=== PATIENT | female | born 1990 | race Caucasian/White ===

== ENCOUNTER 2016-10-12 18:19 | Emergency (ER) | payer SELFPAY ==
[~2016-10-12 18:19] MED LIST: AUGM500T7 PO; FLUT50SP EACH NARE; MEDICAL COMPRES1 MIS
--- NOTE | 2016-10-12 19:47 | PD ---
HPI Chief Complaint Spotting in Date Seen: Oct 12, 2016 Travel History International Travel<30 Days: No Contact w/Intl Traveler<30Days: No Known Affected Area: No History of Present Illness HPI Patient a 26-year-old at 25 weeks [facility] presents complaining of some pink to light red bleeding today after intercourse. Denies ruptured membranes or significant pain baby is active and she is a reactive NST for 25 weeks, no contractions saying Para: 0 : 1 History Past Medical History Medical History: Denies Significant Hx Allergies-Medications (Allergen,Severity, Reaction): Coded Allergies: No Known Allergies (Unverified , 09/24/16) Home Meds Active Scripts Fluticasone Nasal [place] 50 Mcg/Act [id number] Mcg EACH NARE BID #1 BOTTLE Ref 0 50 mcg/spray Prov:Daniel Andrews MD R2 09/24/16 Amoxicillin-Clavulanate (Augmentin)500-125 mg [id number] Mg PO Q8H #21 TAB Ref 0 Prov:Daniel Andrews MD R2 09/24/16 Medical Compression Elastic Stockings 1 Mis Mis #2 EA .ROUTE DIRECTED Ref 0 Prov:Daniel Andrews MD R2 08/19/16 Review of Systems General / Constitutional: No: Fever, Weight Gain, Chills, Other Eyes: No: Diploplia, Blurred Vision, Visual changes, Pain, Photophobia HENT: No: Headaches, Vertigo, Lightheadedness Cardiovascular: No: Irregular Rhythm, Chest Pain or Discomfort, Palpitations, Tachycardia, Syncope, Varicosities, Edema, Cyanosis Respiratory: No: Cough, Short of Breath, Other Gastrointestinal: No: Nausea, Vomiting, Diarrhea Genitourinary: Vaginal Bleeding, No: Decreased Urinary Output, Oliguria Musculoskeletal: No: Limited ROM, Weakness, Cramping, Edema, Pain Skin: No Rash, No Itching, No Dryness, No Lumps, No Change in Pigmentation, No Change in Nails, No Alopecia, No Lesions Neurologic: No: Weakness, Dizziness, Syncope, Focal Abnormalities, Coordination Problem, Headache, Slurred Speech, Seizures Psychiatric: No: Depression, Suicidal Ideations, Homicidal Ideation Endocrine: No: Heat Intolerance, Cold Intolerance, Polydipsia, Polyuria, Other Physical Exam Narrative GENERAL: Well-nourished, well-developed patient. SKIN: Warm and dry. HEAD: Normocephalic and atraumatic. EYES: No scleral icterus. No injection or drainage. ENT: No nasal drainage noted. Mucous membranes pink. Airway patent. NECK: Supple, trachea midline. No JVD. CARDIOVASCULAR: Regular rate and rhythm without murmurs, gallops, or rubs. RESPIRATORY: Breath sounds equal bilaterally. No accessory muscle use. BREASTS: Bilateral exam showed no masses , no retractions, no nipple discharge. ABDOMEN/GI: Abdomen soft, non-tender, bowel sounds present, no rebound, no guarding Gravid to [-25] weeks size Fundal Height: [25-] GENITOURINARY: External Genitalia: intact and normal in appearance BUS glands: [-] Small amount of dark red blood in the vaginal fornix no active bleeding noted Cervix: [-] [place] friable with a small spot at 9:00 on the os that may be the source of bleeding Dilatation: [-] Closed Effacement: [-] Uneffaced Station: [-3] Presentation: [-vtx by US] Membranes: [intact ] Uterine Contractions: [none-] FHT's: Category: [1-] Baseline: [122-] Reactive: [-]+ for 25wks Variability: [mod-] Decels: [none-] EXTREMITIES: No cyanosis or edema. BACK: Nontender without obvious deformity. No CVA tenderness. NEUROLOGICAL: Awake and alert. Motor and sensory grossly within normal limits. Five out of 5 muscle strength in all muscle groups. Normal speech. Data Data Labs US - no previa anterior placenta seen , NL AFV , vtx fetus active MDM Interpretation(s) This is a 26-year-old at 25 weeks with spotting in the second trimester after intercourse, no rupture the membranes or significant contractions, ultrasound [done by me] rules out previa tonight, the placenta is anterior within normal limits normal fluid volume and normal fetus vertex presentation has no other complaints or problems Exam--is a small amount of dark red blood in the vaginal fornix and around the cervix appears to be friable cervix. Blood was wiped away and a very small spot about 9:00 on the external cervical os appears to be friable & was bleeding but it's unsure because there is no active bleeding now. The cervix is closed thick and high Plan Plan to observe the patient for another hour on the monitor and for any bleeding and at that time get up to the bathroom and see when she wipes if she notices any significant bleeding if none is noted that she's ready to go home to bedrest Diagnosis Diagnosis: Primary Impression: Spotting affecting in second trimester Disposition: 01 DISCHARGE HOME Condition: Stable Michael Suero II, MD Oct 12, 2016 19:47
--- NOTE | 2016-10-12 20:01 | PD ---
HPI Chief Complaint Vaginal bleeding Date Seen: Oct 12, 2016 Time Seen: 19:52 Travel History International Travel<30 Days: No Contact w/Intl Traveler<30Days: No Known Affected Area: No History of Present Illness HPI Patient is a 26-year-old female at 25/3. Present here today for vaginal bleeding that started 1 hour ago. Noticed to have pink spotting when wiping. Blood did not soak underwear. Noted menstrual like cramping 15 minutes before and after bleeding. This is the first episode. Continues to endorse movement. Denies contractions, loss of fluid, vaginal discharge, vaginal pruritus. She has been having good hydration. Did have intercourse yesterday morning. History Past Medical History Medical History: Denies Significant Hx Obstetric History Obstetric History from IVF reports a history of cervical dilation which is now resolved Past Surgical History Surgical History: No Previous Surgery Family History Family History: Negative Social History Alcohol Use: No Tobacco Use: No Substance Abuse: No Allergies-Medications (Allergen,Severity, Reaction): Coded Allergies: No Known Allergies (Unverified , 09/24/16) Home Meds Active Scripts Fluticasone Nasal [place] 50 Mcg/Act [id number] Mcg EACH NARE BID #1 BOTTLE Ref 0 50 mcg/spray Prov:Daniel Andrews MD R2 09/24/16 Amoxicillin-Clavulanate (Augmentin)500-125 mg [id number] Mg PO Q8H #21 TAB Ref 0 Prov:Daniel Andrews MD R2 09/24/16 Medical Compression Elastic Stockings 1 Mis Mis #2 EA .ROUTE DIRECTED Ref 0 Prov:Daniel Andrews MD R2 08/19/16 Review of Systems Except as stated in HPI: all other systems reviewed are Neg Physical Exam Narrative GENERAL: Well-nourished, well-developed patient. SKIN: Warm and dry. HEAD: Normocephalic and atraumatic. EYES: No scleral icterus. No injection or drainage. CARDIOVASCULAR: Regular rate and rhythm without murmurs, gallops, or rubs. RESPIRATORY: Breath sounds equal bilaterally. No accessory muscle use. ABDOMEN/GI: Abdomen soft, non-tender, no rebound, no guarding Gravid to 25 weeks size GENITOURINARY: External Genitalia: intact and normal in appearance. Bright red blood present on the vulva. GENITOURINARY: Pulling of blood in the posterior fornix of vaginal vault. Lesion noted at the 9 o'clock position of the cervix without active bleeding. Cervical os was closed. Posterior and thick. (Exam performed by Dr. Suero and myself) Uterine Contractions: None FHT's: Monitoring appropriate for gestational age EXTREMITIES: No cyanosis or edema. NEUROLOGICAL: Awake and alert. Motor and sensory grossly within normal limits. Five out of 5 muscle strength in all muscle groups. Normal speech. Data Data Vital Signs Reviewed: Yes Orders Vital Signs (Adult) .ON ADMISSION (10/12/16 19:50) ^ Labor Status (10/12/16 19:50) ^ Non Stress Test (10/12/16 19:50) ^ Hydration (10/12/16 19:50) Ob Poc Ultrasound (10/12/16 ) MDM Interpretation(s) 26-year-old female at 25/3. Presented for vaginal bleeding. 1. IUP * heart monitoring reassuring 2. Vaginal bleeding * POC bedside ultrasound shows an anterior placenta * Recent intercourse likely cause of irritation to cervix * No active bleeding from the cervix but there is a lesion present at the 9 o' clock position * Recommend bed rest 24 hours * Recommend pelvic rest 1 week * We'll monitor in the ED for 1 hour. If heart tracing remained reassuring and vaginal bleeding does not worsen, we'll then discharged in stable condition sdw Dr. Suero ADDENDUM: FHR remains reassuring and there was worsening of bleeding, just mild spotting. Counselled patient about the recommendations above. Keep upcoming appt with Dr. Andrews on 10/21/2016. Diagnosis Diagnosis: Primary Impression: Spotting affecting in second trimester Disposition: 01 DISCHARGE HOME Condition: Stable Referrals: Daniel Andrews MD R2 1 week Diane Chinchilla MD R2 Oct 12, 2016 20:01
[2016-11-19] MEDS ORDERED: TETA1INJ6 IM (14:58)
[2016-11-19] MEDS ORDERED: BAYEKIT (15:13)
[2016-11-28] MEDS ORDERED: METF500T PO (17:36)
[2016-12-13] MEDS ORDERED: METF500T PO (09:46)
[2016-12-20] MEDS ORDERED: CLOT1CRE TOPICAL (11:00)
[2017-01-02] MEDS ORDERED: METF500T PO (12:09)
[2017-01-08] MEDS ORDERED: METF1000 PO (11:03)
[2017-03-07] MEDS ORDERED: AUGM0.0512 TOPICAL (14:40)
== END 2016-10-13 10:25 | disposition home or self-care (01) ==
LOC: HOBED 18:19
DX: O26.852 Spotting complicating pregnancy, second trimester (principal); Z3A.25 25 weeks gestation of pregnancy
CPT/HCPCS: 76815

== ENCOUNTER 2017-01-21 09:03 | Inpatient (IN) | payer MEDICAID, OTHER ==
[2017-01-21] VITALS (19 sets, daily range): BP systolic 115–139; BP diastolic 72–94; PULSE 84–97; RESP 16–18; TEMP 98.5
[~2017-01-21 09:03] MED LIST changes: -AUGM500T7 PO; +BAYEKIT; +CLOT1CRE TOPICAL; +METF1000 PO
[2017-01-21] MEDS ORDERED: LIDOCAINE HCL 1% 50 ML VIAL I-DERMAL PRN (09:15)
[2017-01-21] MEDS ORDERED: LIDOCAINE HCL 1% 50 ML VIAL INFIL PRN (09:15)
[2017-01-21] MEDS ORDERED: OXYTOCIN 30 UNITS-500ML PREMIX 500 ML IV ONE (09:15)
[2017-01-21] MEDS ORDERED: SODIUM CHLORIDE 0.9% FLUSH 10 ML FLUSH IV FLUSH PRN (09:15)
[2017-01-21] MEDS: SODIUM CHLORIDE 0.9% FLUSH 10 ML FLUSH IV FLUSH SCH ×2 (09:15→21:00)
[2017-01-21] MEDS ORDERED: CITRIC ACID-SODIUM CITRATE LIQ 30 ML UDC PO SCH (09:15)
[2017-01-21] MEDS ORDERED: MINERAL OIL 10 ML VIAL TOPICAL PRN (09:15)
[2017-01-21] MEDS ORDERED: PENICILLIN G POTASSIUM INJ 5,000,000 UNITS in SODIUM CHLORIDE 0.9% INJ 100 ML IV ONE (09:15)
[2017-01-21] MEDS ORDERED: MISOPROSTOL 25 MCG SUPP VAGINAL ONE (09:15)
[2017-01-21] MEDS ORDERED: SODIUM CHLORID 0.9% 500 ML INJ 500 ML IV PRN (09:15)
--- NOTE | 2017-01-21 09:27 | HHI.HP ---
HPI Chief Complaint Induction of labor for GDM A2 Date Seen: January 21, 2017 (Daniel Andrews MD R2) Travel History International Travel<30 Days: No Contact w/Intl Traveler<30Days: No (Daniel Andrews MD R2) History of Present Illness HPI 26-year-old female, , at 39.6 weeks gestation with an SILAS of 01/22/2017, as established by Blastocystis transfer on 05/06/2016. Her has been complicated by gestational diabetes requiring metformin therapy. She also is GBS positive on culture at 36 weeks. She is here today for induction, to reduce risk of complications 2/2 GDM. She denies feeling any vaginal leakage, vaginal bleeding, decreased movement, blurry vision, headaches, pain under her ribs. She had a slight headache this morning, but this has resolved. She ate breakfast at 0800 am, and took her 1,000 mg of metformin shortly after. She was feeling some contractions yesterday during NST. (Daniel Andrews MD R2) History Past Medical History Medical History: Denies Significant Hx (Daniel Andrews MD R2) Obstetric History Obstetric History In vitro fertilization (Daniel Andrews MD R2) Allergies-Medications (Allergen,Severity, Reaction): Coded Allergies: Shellfish (Verified Allergy, Intermediate, Hives, 01/21/17) pt states can have shrimp Home Meds Active Scripts Symwave Contour Blood Gluco W/Device 1 Kit Kit #1 Kit .route As Directed Prov:Daniel Andrews MD R2 11/19/16 Reported Medications Vit W/ Docusate-Fe Fu ( 19)1 Tab Tab 01/21/17 Folic Acid 5 Mg Cap5 Mg PO DAILY Ref 0 01/21/17 Metformin 1,000 Mg Tab1,000 Mg PO BIDPC #60 TAB Ref 0 With meals 01/08/17 Discontinued Scripts Clotrimazole Topical 1% Cream1 Applic TOPICAL BID #45 GM Prov:Cholo Corrales MD R3 12/20/16 Review of Systems General / Constitutional: No: Fever, Weight Loss Eyes: No: Diploplia HENT: No: Headaches Respiratory: No: Cough, Short of Breath Gastrointestinal: Abdominal Pain, No: Nausea, Vomiting, Diarrhea Genitourinary: No: Urgency (Daniel Andrews MD R2) Physical Exam Narrative GENERAL: Obese, gravid to 40 weeks. SKIN: Warm and dry. HEAD: Normocephalic and atraumatic. EYES: No scleral icterus. No injection or drainage. ENT: No nasal drainage noted. Mucous membranes pink. Airway patent. NECK: Supple, trachea midline. No JVD. CARDIOVASCULAR: Regular rate and rhythm without murmurs, gallops, or rubs. RESPIRATORY: Breath sounds equal bilaterally. No accessory muscle use. BREASTS: Bilateral exam showed no masses , no retractions, no nipple discharge. ABDOMEN/GI: Abdomen soft, non-tender, bowel sounds present, no rebound, no guarding Gravid to 40 weeks size Fundal Height: 42 cm GENITOURINARY: External Genitalia: intact and normal in appearance Cervix: Posterior-mid position Dilatation: 3 cm Effacement: 40% Station: -2 Presentation: cephalic Membranes: intact Uterine Contractions: none FHT's: Category: 1 Baseline: 150 Reactive: Y Variability: moderate Decels: none EXTREMITIES: No cyanosis or edema. BACK: Nontender without obvious deformity. NEUROLOGICAL: Awake and alert. Motor and sensory grossly within normal limits. Five out of 5 muscle strength in all muscle groups. Normal speech. (Daniel Andrews MD R2) Assessment/Plan Problem List: (1) Polyhydramnios (2) Two vessel cord (3) Primiparity (4) Gestational diabetes mellitus (5) Positive GBS test Assessment and Plan 26 y/o presenting at 39.6 weeks gestations, being induced for Gestational diabetes A2, controlled on metformin. Problem # 1: IUP Anticipate normal vaginal delivery Continuous FHT and tocometry Bishops Score: 6, ripening with Cytotec 25 mcg vaginally x 1 Start Pitocin 1-2-30 after 4 hours of cytotec, and AROM. Problem # 2: GDM A2 A1c = 6.5, fasting glucose during third trimester = < 103 on metformin 1 g in AM and 500 mg PM. BPP 04/22 on 01/16/2017, Reactive NST on 01/20/2017. EFW of 8 lbs 13 ounces (4000 mg) at 39/5 weeks gestation. Goal glucose 70-110 mg/dL during labor. Check Bedside glucose q 2 hours in latent phase of labor. Start insulin gtt if BG > 120 on bedside accuchecks. Clear liquid diet while in labor. Problem # 3: Two vessel cord Continuous FHT. No anatomic abnormalities on US. Problem # 4: Polyhydramnios JUSTIN at 38 weeks of 31.3 cm JUSTIN at 39.5 weeks of 17.9 cm Problem # 5: GBS Positive PCN 5 g x one on admission, followed by 2.5 g q 4 hours until delivery. Problem # 6: FEN Hold IVF at this time CBC, Hold clot, UA, and CMP on admission Clear liquid diet SDW Dr. Kaila Warren (Daniel Andrews MD R2) Attending Attestation Patient seen and examined with Dr. Daniel Andrews. I HAVE REVIEWED THE RECORD AND AGREE WITH THE ABOVE NOTE AND PLAN OF CARE WAS DISCUSSED. I HAVE AUTHORIZED THE ORDER FOR ADMISSION TO AN IN-PATIENT STATUS. (Kaila Warren MD) Daniel Andrews MD R2 January 21, 2017 09:27 Kaila Warren MD January 21, 2017 13:08
[2017-01-21] MEDS ORDERED: SODIUM CHLOR 0.9% 1000 ML INJ 1,000 ML IV PRN (09:33)
[2017-01-21] MEDS ORDERED: FOLI5CAP PO (10:48)
[2017-01-21] MEDS ORDERED: PRENTAB60 (10:49)
[2017-01-21 10:53] LABS: AUTOMATED NEUTROPHIL # 5.5 TH/MM3 (1.8-7.7); BASOPHIL % 0.2 % (0.0-2.0); EOSINOPHIL # 0.1 TH/MM3 (0-0.4); EOSINOPHIL % 1.4 % (0.0-4.0); HEMATOCRIT 36.6 % (35.0-46.0); HEMO FLAGS DIFF FINAL; LYMPHOCYTE # 1.6 TH/MM3 (1.0-4.8); MEAN CELL VOLUME 77.3 FL (80.0-100.0); MEAN CORPUSCULAR HEMOGLOBIN 26.3 PG (27.0-34.0); MONO % 8.2 % (0.0-8.0); NEUT % 70.2 % (16.0-70.0); PLATELET COUNT 304 TH/MM3 (150-450); RED BLOOD COUNT 4.74 MIL/MM3 (4.00-5.30); RED CELL DISTRIBUTION WIDTH 15.4 % (11.6-17.2); WHITE BLOOD COUNT 7.8 TH/MM3 (4.0-11.0)
[2017-01-21 10:59] LABS: BACTERIA, URINE MOD /hpf; BLOOD, URINE SMALL (NEG); COMMENT (UR) CULTURE INDICATED; CULTURE IF INDICATED CULTURE INDICATED; GLUCOSE,URINE NEG (NEG); KETONE, URINE NEG (NEG); MUCUS URINE FEW /lpf (OCC); NITRITE,URINE NEG (NEG); PH, URINE 6.5 (5.0-8.5); SQUAMOUS EPITHELIAL CELL URINE 11 /hpf (0-5); URINE COLOR YELLOW (YELLW/STRAW)
--- NOTE | 2017-01-21 12:25 | PD.LABORPN ---
Subjective Subjective at 39.6 weeks inductions for GDM. Patient is comfortable. Just ordered lunch (chicken noodle soup and sugar free soda). Feeling occasional contractions. Denies headaches or visual changes. BP 129/80. BG checked at 1130 was 86. S/p cytotec placed at 1000 am. [place]: Occasional contractions on monitor FHT: Category 1, baseline 145, moderate variability, no decels. WDW Dr. Warren. (Daniel Andrews MD R2) Objective Vital Signs Vital Signs Date Time Temp Pulse Resp B/P Pulse Ox O2 Delivery O2 Flow Rate FiO2 01/21/17 11:00 90 120/72 01/21/17 10:57 96 120/79 Objective Pelvic Exam: Cervix: [-] Dilatation: [-] Effacement: [-] Station: [-] Presentation: [-] Membranes: [intact or ruptured] Uterine Contractions: [-] FHT's: Category: [-] Baseline: [-] Reactive: [-] Variability: [-] Decels: [-] (Daniel Andrews MD R2) Assessment/Plan Problem List: (1) Polyhydramnios (2) Two vessel cord (3) Primiparity (4) Gestational diabetes mellitus (5) Positive GBS test (Daniel Andrews MD R2) Assessment and Plan Discussed status , continue with current care plan w/ exception that if no significant contractions, may consider 2nd dose cytotec rather than pitocin/ ROM at next check (Kaila Warren MD) Daniel Andrews MD R2 January 21, 2017 12:25 Kaila Warren MD January 21, 2017 13:11
[2017-01-21] MEDS: PENICILLIN G POTASSIUM INJ 2,500,000 UNITS in SODIUM CHLORIDE 0.9% INJ 100 ML IV SCH ×3 (13:00→21:00)
--- NOTE | 2017-01-21 15:21 | PD.LABORPN ---
Subjective Subjective Patient resting comfortably in bed. Last contraction was approximately 45 minutes ago. No concerns. Tolerate lunch well. Last BG check was 86 mg/dL per RN. Objective Vital Signs Vital Signs Date Time Temp Pulse Resp B/P Pulse Ox O2 Delivery O2 Flow Rate FiO2 01/21/17 14:25 98.5 16 01/21/17 14:01 86 115/75 01/21/17 11:00 90 120/72 01/21/17 10:57 96 120/79 Objective Pelvic Exam: Cervix: posterior Dilatation:3-4 cm Effacement: 40% Station: -2 Presentation: ceph Membranes: intact Uterine Contractions: occasional FHT's: Category: 1 Baseline: 145 Reactive: y Variability: mod Decels: none Assessment/Plan Problem List: (1) Polyhydramnios (2) Two vessel cord (3) Primiparity (4) Gestational diabetes mellitus (5) Positive GBS test Assessment and Plan Patient doing well. Category 1 tracing. Cervix unchanged (3 cm/40/-2) will give 2nd dose of Cytotec 25 mcg and reevaluate cervix in 4 hours (1900). +/- AROM, IUPC and Pitocin at next cervical check. Continue accuchecks q 2 hours. Received first dose of PCN and is scheduled to get 2nd dose within the next [address] Kaila Warren and Dr. Maik Corea. DW Daniel Lim MD R2 January 21, 2017 15:21
--- NOTE | 2017-01-21 19:33 | PD.LABORPN ---
Subjective Subjective Patient comfortable on the ball at bedside. She is now having cxt ever 8 minutes and have increased in intensity to 4 out of 10. Denies LOF, vag bleeding , or decreased FM. Cat 1 tracing ++ acels and moderate variability. Objective Vital Signs Vital Signs Date Time Temp Pulse Resp B/P Pulse Ox O2 Delivery O2 Flow Rate FiO2 01/21/17 19:30 18 01/21/17 17:06 96 125/94 01/21/17 16:55 16 01/21/17 16:00 92 129/74 01/21/17 14:25 98.5 16 01/21/17 14:01 86 115/75 Objective Pelvic Exam: Cervix: mid Dilatation: 3-4 Effacement: 40% Station: -2 Presentation: ceph Membranes: AROM 19:45 Uterine Contractions: every 8 minutes FHT's: Category: 1 Baseline: 145 Reactive: Y Variability: mod Decels: none Assessment/Plan Problem List: (1) Polyhydramnios (2) Two vessel cord (3) Primiparity (4) Gestational diabetes mellitus (5) Positive GBS test Assessment and Plan Patient doing well. Cat 1 tracing. s/p Cytotec 25 mcg x 2 (1000 and 1400). Cervix remains unchanged (3/40/-2) but having regular contractions. Start Pitocin at 1-2-30 and AROM with clear fluid was performed at 1945. Continue with clear diet. BG at bedside have all been < 100. Has recieved 3 doses of PCN. joan Nolasco. Daniel Andrews MD R2 January 21, 2017 19:33
[2017-01-21] MEDS ORDERED: OXYTOCIN 30 UNITS-500ML PREMIX 500 ML IV SCH ×2 (20:00→20:15)
[2017-01-21] MEDS ORDERED: metFORMIN HCL 500 MG TAB PO ONE (21:30)
[2017-01-22] VITALS (230 sets, daily range): BP systolic 42–162; BP diastolic 15–115; PULSE 76–259; RESP 16–20; TEMP 98.1–100.3
[2017-01-22] MEDS ORDERED: fentaNYL 2MCG-BUPIV 0.125% INJ 100 ML ONE (00:06)
[2017-01-22] MEDS ORDERED: fentaNYL 2MCG-BUPIV 0.125% 100 ML EPIDURAL SCH (00:45)
[2017-01-22] MEDS ORDERED: DO NOT ADMINISTER ANTICOAGULANTS PRN (00:45)
[2017-01-22] MEDS ORDERED: ePHEDrine/NS 25 MG/5 ML SYR IV PRN (00:45)
[2017-01-22] MEDS ORDERED: NO SYSTEM NARCOTICS PRN (00:45)
--- NOTE | 2017-01-22 00:46 | PD.LABORPN ---
Subjective Subjective Patient is resting comfortably in bed. She just received an epidural at 00:25. She does not have any complaints at this time. Per RN blood glucoses have been stable in the 70s mg/dL. Objective Vital Signs Vital Signs Date Time Temp Pulse Resp B/P Pulse Ox O2 Delivery O2 Flow Rate FiO2 01/22/17 00:31 98 123/69 01/22/17 00:30 99 01/22/17 00:29 98.2 01/22/17 00:26 97 01/22/17 00:26 122/73 01/22/17 00:25 104 01/22/17 00:21 20 125/76 01/22/17 00:21 100 01/22/17 00:20 98 01/22/17 00:16 103 130/71 01/22/17 00:15 113 01/22/17 00:14 20 01/22/17 00:13 110 131/73 01/22/17 00:01 90 127/77 01/21/17 23:31 92 127/84 01/21/17 23:06 18 01/21/17 23:01 88 127/78 01/21/17 22:31 87 139/88 01/21/17 22:01 97 130/79 01/21/17 21:59 90 131/80 01/21/17 21:31 88 125/79 01/21/17 20:53 18 01/21/17 20:52 88 131/79 01/21/17 20:01 90 132/81 01/21/17 19:30 18 01/21/17 19:01 84 124/75 01/21/17 17:06 96 125/94 01/21/17 16:55 16 Objective Pelvic Exam: Cervix: mid Dilatation: 5 Effacement: 80% Station: -2 Presentation: vertex Membranes: AROM on 01/21 19:45 Uterine Contractions: q2-3 minutes on tocometer FHT's: Category: I Baseline: 140s Reactive: yes Variability: moderate Decels: none Assessment/Plan Problem List: (1) Polyhydramnios (2) Two vessel cord (3) Primiparity (4) Gestational diabetes mellitus (5) Positive GBS test Assessment and Plan Patient is comfortable and doing well s/p epidural Cat 1 tracing s/p Cytotec 25 mcg x 2 (01/21 10:00 and 14:00) Cervix: 5/-2, vertex Contractions q2-3 minutes on tocometer IUPC placed to assess adequacy of contractions Continue Pitocin per protocol AROM with clear fluid performed 01/21 at 19:45 BGs at bedside per RN have been stable in 70s Has received 4 doses of PCN Mynor Dumas MD R1 January 22, 2017 00:46
[2017-01-22] MEDS: PENICILLIN G POTASSIUM INJ 2,500,000 UNITS in SODIUM CHLORIDE 0.9% INJ 100 ML IV SCH ×3 (01:00→09:06)
--- NOTE | 2017-01-22 07:51 | PD.LABORPN ---
Subjective Subjective Patient doing well. Comfortable pain is a 2/10 with increasing pressure over perineum. IUPC placed, kwabena every 2-3 minutes. Objective Vital Signs Vital Signs Date Time Temp Pulse Resp B/P Pulse Ox O2 Delivery O2 Flow Rate FiO2 01/22/17 07:30 92 01/22/17 07:25 96 01/22/17 07:20 94 01/22/17 07:16 91 113/80 01/22/17 07:15 93 01/22/17 07:05 16 01/22/17 07:05 98.4 01/22/17 07:00 86 111/78 01/22/17 07:00 86 01/22/17 06:46 80 01/22/17 06:46 104/74 01/22/17 06:45 82 01/22/17 06:36 98.7 01/22/17 06:31 82 117/57 01/22/17 06:30 82 01/22/17 06:25 80 01/22/17 06:20 80 01/22/17 06:16 77 114/76 01/22/17 06:15 84 01/22/17 06:10 82 01/22/17 06:05 85 01/22/17 06:01 79 109/65 01/22/17 06:00 82 01/22/17 05:55 88 01/22/17 05:50 86 01/22/17 05:46 86 111/73 01/22/17 05:45 87 01/22/17 05:31 80 109/65 01/22/17 05:30 84 01/22/17 05:25 88 109/70 01/22/17 05:25 84 01/22/17 05:20 86 01/22/17 05:15 80 108/72 01/22/17 05:15 81 01/22/17 05:10 81 01/22/17 05:05 88 01/22/17 05:01 91 118/71 01/22/17 05:00 84 01/22/17 04:55 81 01/22/17 04:50 84 01/22/17 04:45 83 01/22/17 04:45 85 119/76 01/22/17 04:40 87 01/22/17 04:35 86 01/22/17 04:31 83 115/68 01/22/17 04:30 86 01/22/17 04:25 90 01/22/17 04:20 92 01/22/17 04:16 82 113/72 01/22/17 04:15 91 01/22/17 04:05 98.3 77 18 01/22/17 04:01 79 114/66 01/22/17 04:00 81 01/22/17 03:55 84 01/22/17 03:50 82 01/22/17 03:46 81 113/68 01/22/17 03:45 82 01/22/17 03:40 77 01/22/17 03:35 77 01/22/17 03:31 79 110/65 01/22/17 03:30 79 01/22/17 03:25 84 01/22/17 03:20 76 01/22/17 03:16 78 103/66 01/22/17 03:15 81 01/22/17 03:10 83 01/22/17 03:05 87 01/22/17 03:01 87 113/64 01/22/17 03:00 91 01/22/17 02:50 91 01/22/17 02:46 84 112/70 01/22/17 02:45 95 01/22/17 02:35 89 01/22/17 02:30 82 01/22/17 02:30 89 110/67 01/22/17 02:25 85 01/22/17 02:20 80 01/22/17 02:16 81 107/64 01/22/17 02:15 84 01/22/17 02:10 80 01/22/17 02:05 85 01/22/17 02:01 85 106/66 01/22/17 02:00 86 01/22/17 01:55 79 01/22/17 01:50 84 01/22/17 01:46 80 108/63 01/22/17 01:45 83 01/22/17 01:40 89 01/22/17 01:35 89 01/22/17 01:31 89 114/69 01/22/17 01:30 90 01/22/17 01:25 89 01/22/17 01:20 89 01/22/17 01:15 87 01/22/17 01:15 83 117/68 01/22/17 01:01 89 108/69 01/22/17 01:00 86 01/22/17 01:00 18 01/22/17 00:56 89 118/64 01/22/17 00:55 84 01/22/17 00:51 85 116/63 01/22/17 00:50 89 01/22/17 00:45 92 118/71 01/22/17 00:45 93 01/22/17 00:41 87 117/73 01/22/17 00:40 91 01/22/17 00:36 92 121/60 01/22/17 00:35 92 01/22/17 00:31 98 123/69 01/22/17 00:30 99 01/22/17 00:29 98.2 01/22/17 00:26 97 01/22/17 00:26 122/73 01/22/17 00:25 104 01/22/17 00:21 20 125/76 01/22/17 00:21 100 01/22/17 00:20 98 01/22/17 00:16 103 130/71 01/22/17 00:15 113 01/22/17 00:14 20 01/22/17 00:13 110 131/73 01/22/17 00:06 18 01/22/17 00:01 90 127/77 Objective Pelvic Exam: Cervix: 9 cm Effacement: 90% Station: 0 Presentation: cephalic Membranes: ruptured Uterine Contractions: q 2-3 minutes FHT's: Category: 1 Baseline: 135 Reactive: y Variability: moderate Decels: occ variables Assessment/Plan Problem List: (1) Polyhydramnios (2) Two vessel cord (3) Primiparity (4) Gestational diabetes mellitus (5) Positive GBS test Assessment and Plan Cervix 9-10/90%/0 : trial pushes with RN at bedside. [place], adequate CXT q 2-3 minutes, epidural in place. FHT shows Category 1 baseline 135 / mod variability / occasional variable decels Continue with pitocin gtt at 6 units/hr BG have been < 80 overnight per RN, continue with accuchecks q 2 hours Anticipate normal vaginal delivery. wdw Daniel Munoz MD R2 January 22, 2017 07:51
[2017-01-22] MEDS: SODIUM CHLORIDE 0.9% FLUSH 10 ML FLUSH IV FLUSH SCH (08:09)
[2017-01-22] MEDS ORDERED: METHYLERGONOVINE MALEATE 0.2 MG/ML VIAL ONE (10:52)
[2017-01-22] MEDS ORDERED: MISOPROSTOL 200 MCG TAB ONE (10:56)
[2017-01-22] MEDS ORDERED: SODIUM CHLOR 0.9% 250 ML INJ 250 ML IV ONE (11:15)
--- NOTE | 2017-01-22 11:24 | PD.OB.DELI ---
Anesthesia: Epidural Episiotomy: None Vaginal Delivery: Normal Presentation: Occiput anterior Nuchal Cord: None Delayed cord clamping (45 sec): Yes : Male One Minute : 8 Five Minute : 9 Weight: 10 lbs Placenta: Spontaneous delivery, Intact, Other (2 vessel cord) Laceration: Vaginal laceration, 2 deg (Cervical laceration repaired with 2-0 chromic ) Repair: Chromic running, Vicryl running Additional Information male was delivery at 1015 on 01/22/2017. The labor was complicated by a post hemorrhage of 1250 ml. There was delayed cord clamping (45 seconds) , and the baby had 8/9 . Third stage of labor was prolonged to 35 minutes and required aggressive uterine massage to release the placenta. After placental delivery, the patient experienced > 1250 ml CC blood loss. This required aggressive uterine message, methergen IM x 1, and ctyotec 400 mcg per rectum. We, also placed a second IV and liya a STAT CBC and Typed and Crossed 2 units of PRBCs. 2 L of LR was initiated (boluses), as well as Pitocin at 999 mcg /hr. The cervical laceration that measured 2.5 cm at the 3 o'clock position was repaired using a 2-0 chromic running suture. We then placed a argueta catheter and continued with uterine massage until hemostasis was obtained. The patient was AAO throughout the above. We will follow up with Vital signs q 10 minutes x 5, and follow up CBC to assess for drop in Hgb. Will transfuse PRBCs if Hgb decreases. Blood glucose at bedside at 1200 hrs was 101 mg/dL. sdw Dr. Camara (Daniel Andrews MD R2) Addendum Remarks I rounded on the patient. I rounded with the resident. I reviewed the resident' s assessment and plan of care for this patient. I am in agreement with the plan of care for this patient. (Vi Valdez MD) Daniel Andrews MD R2 January 22, 2017 11:23 Vi Valdez MD January 23, 2017 09:56
[2017-01-22] MEDS ORDERED: ZOLPIDEM TARTRATE 5 MG TAB PO PRN (11:30)
[2017-01-22] MEDS ORDERED: BENZOCAINE 20% TOPICAL SPRAY 60 ML CAN TOPICAL PRN (11:30)
[2017-01-22] MEDS ORDERED: DOCUSATE SODIUM 50 MG/SENNA 8.6 MG TAB PO PRN (11:30)
[2017-01-22] MEDS ORDERED: oxyCODONE/ACETAMINOPHEN 5 MG/325 MG TAB PO PRN (11:30)
[2017-01-22] MEDS ORDERED: IBUPROFEN 600 MG TAB PO PRN (11:30)
[2017-01-22] MEDS ORDERED: ONDANSETRON ODT 4 MG TAB PO PRN (11:30)
[2017-01-22] MEDS ORDERED: WITCH HAZEL 50%/GLYCERIN 12.5% 40 PAD JAR TOPICAL PRN (11:30)
[2017-01-22] MEDS ORDERED: SODIUM CHLORIDE 0.9% FLUSH 10 ML FLUSH IV FLUSH PRN (11:30)
[2017-01-22] MEDS ORDERED: ALUMINUM/MAGNESIUM/SIMETH 30 ML CUP PO PRN (11:30)
[2017-01-22] MEDS ORDERED: OXYTOCIN 30 UNITS-500ML PREMIX 500 ML IV ONE ×2 (11:30)
[2017-01-22 12:12] LABS: AUTOMATED NEUTROPHIL # 10.7 TH/MM3 (1.8-7.7); BASOPHIL % 0.1 % (0.0-2.0); EOSINOPHIL % 0.1 % (0.0-4.0); HEMATOCRIT 31.8 % (35.0-46.0); LYMPH % 10.1 % (9.0-44.0); LYMPHOCYTE # 1.3 TH/MM3 (1.0-4.8); MEAN CELL VOLUME 79.2 FL (80.0-100.0); MEAN CORPUSCULAR HEMOGLOBIN 25.9 PG (27.0-34.0); MEAN CORPUSCULAR HGB CONC 32.7 % (32.0-36.0); MONO % 7.3 % (0.0-8.0); NEUT % 82.4 % (16.0-70.0); PLATELET COUNT 265 TH/MM3 (150-450); RED BLOOD COUNT 4.01 MIL/MM3 (4.00-5.30); RED CELL DISTRIBUTION WIDTH 15.5 % (11.6-17.2)
[2017-01-22 12:13] LABS: HEMO FLAGS DIFF FINAL
[2017-01-22] MEDS ORDERED: ceFAZolin 2 GM PREMIX 50 ML IV SCH (13:15)
[2017-01-22] MEDS: LACTATED RINGER'S 1000 ML INJ 1,000 ML IV SCH ×2 (13:31→18:36)
--- NOTE | 2017-01-22 13:33 | RADRPT ---
EXAM DATE/TIME: 01/22/2017 12:48 [facility] COMPARISON: No previous studies available for comparison. INDICATIONS : Evaluate for foreign body after delivery. Incorrect 4x4 count. MEDICAL HISTORY : None. SURGICAL HISTORY : None. ENCOUNTER: Initial ACUITY: 1 day PAIN SCORE: 0/10 LOCATION: Bilateral chest FINDINGS: Examination of the abdomen demonstrates a normal bowel gas pattern. No foreign bodies. No free air i s identified. No organomegaly is evident. Osseous structures are intact. CONCLUSION: No foreign body. Taqueria Crenshaw MD on January 22, 2017 at 13:30 Board Certified Radiologist. This report was verified electronically.
[2017-01-22] MEDS: ceFAZolin 2 GM PREMIX 50 ML IV SCH ×2 (13:35→20:46)
[2017-01-22 13:39] LABS: AUTOMATED NEUTROPHIL # 16.8 TH/MM3 (1.8-7.7); BASOPHIL % 0.1 % (0.0-2.0); HEMATOCRIT 31.2 % (35.0-46.0); HEMO FLAGS DIFF FINAL; LYMPH % 4.4 % (9.0-44.0); LYMPHOCYTE # 0.8 TH/MM3 (1.0-4.8); MEAN CELL VOLUME 78.2 FL (80.0-100.0); MEAN CORPUSCULAR HEMOGLOBIN 25.8 PG (27.0-34.0); MONO % 5.8 % (0.0-8.0); NEUT % 89.7 % (16.0-70.0); PLATELET COUNT 249 TH/MM3 (150-450); RED BLOOD COUNT 3.99 MIL/MM3 (4.00-5.30); RED CELL DISTRIBUTION WIDTH 15.3 % (11.6-17.2); WHITE BLOOD COUNT 18.8 TH/MM3 (4.0-11.0)
[2017-01-22] MEDS ORDERED: MEASLES, MUMPS, RUBELLA VACCINE 0.5 ML VIAL SQ ONE (16:00)
[2017-01-22] MEDS ORDERED: DIPHTH/TETANUS/ACEL PERTUSSIS (BOOSTER) 0.5 ML VIAL/PFS IM ONE (16:00)
--- NOTE | 2017-01-22 16:55 | RADRPT ---
EXAM DATE/TIME: 01/22/2017 16:22 [facility] COMPARISON: No previous studies available for comparison. INDICATIONS : Evaluate for incomplete sponge count. ORAL CONTRAST: No oral contrast ingested. RADIATION DOSE: 19.39 CTDIvol (mGy) MEDICAL HISTORY : None SURGICAL HISTORY : section. ENCOUNTER: Initial ACUITY: 1 day PAIN SCALE: 1/10 LOCATION: Bilateral lower quadrant TECHNIQUE: Volumetric scanning of the pelvis was performed. Using automated exposure control and adjustment of the mA and/or kV according to patient size, radiation dose was kept as low as reasonably achievable t o obtain optimal diagnostic quality images. FINDINGS: BOWEL/MESENTERY: The uterus is prominent. Debris and/or hemorrhage is present within the endometrial cavity. Bladder is decompressed by Addison. I do not see retained surgical sponge or instrument.. CONCLUSION: Negative for retained surgical sponge. Prominent debris-filled uterus with hemorrhage evident. Karl Langston MD FACR on January 22, 2017 at 16:52 Board Certified Radiologist. This report was verified electronically.
[2017-01-22] MEDS: ACETAMINOPHEN 325 MG TAB PO PRN (18:34)
[2017-01-22 19:11] LABS: AUTOMATED NEUTROPHIL # 12.7 TH/MM3 (1.8-7.7); BASOPHIL % 0.1 % (0.0-2.0); HEMO FLAGS DIFF FINAL; LYMPH % 10.5 % (9.0-44.0); LYMPHOCYTE # 1.6 TH/MM3 (1.0-4.8); MEAN CELL VOLUME 78.7 FL (80.0-100.0); MEAN CORPUSCULAR HEMOGLOBIN 25.7 PG (27.0-34.0); MEAN CORPUSCULAR HGB CONC 32.7 % (32.0-36.0); MONO % 6.6 % (0.0-8.0); NEUT % 82.8 % (16.0-70.0); PLATELET COUNT 222 TH/MM3 (150-450); RED BLOOD COUNT 3.31 MIL/MM3 (4.00-5.30); RED CELL DISTRIBUTION WIDTH 15.6 % (11.6-17.2); WHITE BLOOD COUNT 15.3 TH/MM3 (4.0-11.0)
--- NOTE | 2017-01-22 20:19 | HHI.PR ---
Subjective Remarks Patient states she is feeling fine no problems no weakness or dizziness Appears pale Objective - Low blood pressure tachycardic Vital Signs Date Time Temp Pulse Resp B/P Pulse Ox O2 Delivery O2 Flow Rate FiO2 01/22/17 20:13 100.3 01/22/17 20:04 117 18 78/58 Result Diagram: 01/22/17 1830 A/P Assessment and Plan Status post hemorrhage Low blood pressure tachycardia Will transfuse 1 unit of blood transfusion and reevaluate urine output 75 cc over the past hour It was explained through a command center analyst that blood may be necessary this conversation was had earlier She agreed that if she needed blood she could be transfused Vi Valdez MD January 22, 2017 20:19
[2017-01-22] MEDS ORDERED: SODIUM CHLORIDE 0.9% FLUSH 10 ML FLUSH IV FLUSH SCH (21:00)
[2017-01-23] VITALS (98 sets, daily range): BP systolic 107–124; BP diastolic 50–77; PULSE 100–121; RESP 16–18; TEMP 97.5–99.2; O2SAT 99–100
[2017-01-23] MEDS: ceFAZolin 2 GM PREMIX 50 ML IV SCH ×2 (05:05→13:17)
[2017-01-23 05:40] LABS: AUTOMATED NEUTROPHIL # 7.4 TH/MM3 (1.8-7.7); BASOPHIL % 0.3 % (0.0-2.0); EOSINOPHIL % 0.2 % (0.0-4.0); HEMATOCRIT 22.4 % (35.0-46.0); HEMO FLAGS DIFF FINAL; LYMPHOCYTE # 1.9 TH/MM3 (1.0-4.8); MEAN CELL VOLUME 78.9 FL (80.0-100.0); MEAN CORPUSCULAR HEMOGLOBIN 26.6 PG (27.0-34.0); MEAN CORPUSCULAR HGB CONC 33.7 % (32.0-36.0); MONO % 6.7 % (0.0-8.0); NEUT % 73.8 % (16.0-70.0); PLATELET COUNT 176 TH/MM3 (150-450); RED BLOOD COUNT 2.84 MIL/MM3 (4.00-5.30); RED CELL DISTRIBUTION WIDTH 16.2 % (11.6-17.2); WHITE BLOOD COUNT 10.1 TH/MM3 (4.0-11.0)
[2017-01-23] MEDS: SODIUM CHLORIDE 0.9% FLUSH 10 ML FLUSH IV FLUSH SCH (07:02)
[2017-01-23] MEDS: LACTATED RINGER'S 1000 ML INJ 1,000 ML IV SCH ×2 (07:02→07:29)
--- NOTE | 2017-01-23 08:40 | HHI.OB ---
Subjective Post Day: 1 Remarks Patient had an episode last night where she felt feverish, and had diffuse body aches. Her blood pressure had decreased to 78/58, with a pulse of 117. She was then given 1 unit of packed red blood cells. She reports feeling better after receiving the blood. This morning she has no complaints. Objective Vitals/I&O Vital Signs Date Time Temp Pulse Resp B/P Pulse Ox O2 Delivery O2 Flow Rate FiO2 01/23/17 08:18 98.7 16 01/23/17 08:14 108 117/61 01/23/17 07:29 98.6 01/23/17 07:28 109 117/60 01/23/17 07:27 16 01/23/17 05:04 104 18 115/57 01/23/17 03:03 98.4 18 01/23/17 03:03 104 124/56 01/23/17 00:03 110 18 119/62 01/22/17 23:02 98.8 18 01/22/17 23:02 112 120/57 01/22/17 22:31 18 01/22/17 22:31 115 121/59 01/22/17 22:02 102 127/56 01/22/17 22:01 18 01/22/17 21:35 18 01/22/17 21:32 100 124/63 01/22/17 21:17 109 128/66 01/22/17 21:01 129/60 01/22/17 21:01 112 18 01/22/17 20:46 111 116/61 01/22/17 20:41 18 01/22/17 20:41 116 121/60 01/22/17 20:33 114 123/54 01/22/17 20:15 116 126/61 01/22/17 20:13 100.3 01/22/17 20:04 117 18 78/58 01/22/17 19:08 99.1 18 01/22/17 19:01 111 124/60 01/22/17 18:57 18 01/22/17 18:33 110 130/71 01/22/17 18:01 117 134/70 01/22/17 17:50 20 01/22/17 17:48 100.1 01/22/17 17:31 113 133/63 01/22/17 17:01 113 131/72 01/22/17 16:43 115 127/67 01/22/17 16:10 99.5 01/22/17 16:01 115 123/74 01/22/17 15:47 18 01/22/17 15:35 115 01/22/17 15:31 117 122/74 01/22/17 15:30 113 01/22/17 15:25 120 01/22/17 15:20 123 01/22/17 15:16 147 118/67 01/22/17 15:15 116 01/22/17 15:10 121 01/22/17 15:05 116 01/22/17 15:00 114 125/81 01/22/17 15:00 115 01/22/17 14:55 110 01/22/17 14:50 114 01/22/17 14:45 112 121/71 01/22/17 14:45 114 01/22/17 14:40 112 01/22/17 14:35 113 01/22/17 14:30 116 122/70 01/22/17 14:30 121 01/22/17 14:30 98.1 01/22/17 14:16 259 20 117/49 01/22/17 14:15 110 01/22/17 14:10 116 01/22/17 14:05 115 01/22/17 14:00 114 124/80 01/22/17 14:00 121 01/22/17 14:00 18 01/22/17 13:55 116 01/22/17 13:50 120 01/22/17 13:45 117 01/22/17 13:40 119 01/22/17 13:35 127 01/22/17 13:30 120 124/74 01/22/17 13:30 123 01/22/17 13:20 121 01/22/17 13:17 16 01/22/17 13:14 115 117/67 01/22/17 12:40 132 01/22/17 12:40 99.3 01/22/17 12:35 136 01/22/17 12:34 16 01/22/17 12:31 128 121/73 01/22/17 12:30 129 01/22/17 12:25 133 01/22/17 12:22 16 01/22/17 12:20 139 01/22/17 12:19 139 119/64 01/22/17 12:17 135 160/115 01/22/17 12:15 123 01/22/17 12:12 125 125/82 01/22/17 12:10 128 01/22/17 12:05 124 01/22/17 12:02 16 01/22/17 12:01 126 128/79 01/22/17 12:00 123 01/22/17 11:55 124 01/22/17 11:50 130 01/22/17 11:46 125 124/67 01/22/17 11:45 130 01/22/17 11:43 18 01/22/17 11:41 120 110/57 01/22/17 11:37 141 106/57 01/22/17 11:23 125 121/69 01/22/17 11:16 142 134/81 01/22/17 11:07 159 120/79 01/22/17 10:46 127 127/82 01/22/17 10:31 113 128/59 01/22/17 10:16 118 162/78 01/22/17 10:01 98 141/72 01/22/17 09:50 113 01/22/17 09:48 133 124/94 01/22/17 09:47 134 42/15 01/22/17 09:45 147 01/22/17 09:45 18 01/22/17 09:40 142 01/22/17 09:36 118 135/82 01/22/17 09:33 98.7 01/22/17 09:30 131 01/22/17 09:15 98.1 01/22/17 08:50 110 01/22/17 08:46 104 124/84 01/22/17 08:45 114 01/22/17 08:40 107 01/22/17 08:35 100 01/22/17 08:31 93 131/88 01/22/17 08:30 97 Objective Remarks GENERAL: Pale-appearing. CARDIOVASCULAR: Regular rate and rhythm without murmurs, gallops, or rubs. RESPIRATORY: Breath sounds equal bilaterally. No accessory muscle use. ABDOMEN/GI: Abdomen soft, non-tender. Fundus: Firm, non-tender at umbilicus. GENITOURINARY: Light to moderate bleeding. EXTREMITIES: No cyanosis or edema, non-tender, without signs of DVT. Medications and IVs Current Medications Medications (Trade) Dose Ordered Sig/Tomasa Route Start Time Stop Time Status Last Admin (NS Flush) 2 ml BID IV FLUSH 01/21/17 09:15 Sodium Chloride 2 ml 2 ml UNSCH PRN IV FLUSH 01/21/17 09:15 01/22/17 18:42 Sodium Chloride 500 ml @ 1,000 mls/hr ONCE PRN IV 01/21/17 09:15 01/23/17 09:14 (NS 1000 ml Inj) 1,000 ml @ 100 mls/hr Q10H PRN IV 01/21/17 09:33 Mineral Oil 10 ml 10 ml UNSCH PRN TOPICAL 01/21/17 09:15 Oxytocin 500 ml @ 0 mls/hr TITRATE IV 01/21/17 20:15 01/21/17 22:02 (fentaNYL 2MCG-BUPIV 0.125% INJ) 100 ml @ 0 mls/hr TITRATE EPIDURAL 01/22/17 00:45 (NS Flush) 2 ml BID IV FLUSH 01/22/17 21:00 (NS Flush) 2 ml UNSCH PRN IV FLUSH 01/22/17 11:30 (Tylenol) 650 mg Q4H PRN PO 01/22/17 11:30 01/22/17 18:34 (Motrin) 600 mg Q6H PRN PO 01/22/17 11:30 (Percocet 5-325 Mg) 1 tab Q4H PRN PO 01/22/17 11:30 (Americaine 20% Top Spr) 1 spray Q4H PRN TOPICAL 01/22/17 11:30 (Tucks Pads) 1 applic QID PRN TOPICAL 01/22/17 11:30 (Shandra-Colace) 2 tab Q12H PRN PO 01/22/17 11:30 (Ambien) 5 mg HS PRN PO 01/22/17 11:30 (Mag-Al Plus Susp Liq) 15 ml Q8H PRN PO 01/22/17 11:30 Ondansetron HCl 4 mg 4 mg Q6H PRN PO 01/22/17 11:30 Lactated Ringer's 1,000 ml @ 500 mls/hr Q2H IV 01/22/17 11:24 01/22/17 13:31 Lactated Ringer's 1,000 ml @ 200 mls/hr Q5H IV 01/22/17 11:24 01/23/17 07:29 (Ancef 2 Gm Premix) 50 ml @ 100 mls/hr Q8H IV 01/22/17 13:00 01/23/17 05:05 Assessment/Plan Problem List: (1) Polyhydramnios (2) Two vessel cord (3) Primiparity (4) Gestational diabetes mellitus (5) Positive GBS test Assessment and Plan 26 yo G1 now P1 female s/p PPD # 1. was complicated by gestational diabetes; controlled by metformin. The delivery was complicated by hemorrhage, of 1.25 L. She required IM methargen, 2 bags of Picticon, and 400 mcg cytotec per rectum. The bleeding subsided. #1: Post Hemorrhage Hemoglobin prior to delivery was 12.4/36.6, one hour after delivery hemoglobin dropped to 10.3/31.2. It was checked 8 hours later, and it decreased to 8.5/ 26.0. Overnight, she had an episode of hypotension 78/58, feeling feverish, and having diffuse pain. She was given 1 unit of packed red blood cells. The hemoglobin was checked after this transfusion, and was 7.6/22.4. She is feeling much better today. She is having minimal vaginal bleeding at this point with no clots. PLAN: * Give additional unit of PRBCs, and recheck CBC 1 hr after transfusion. * Transfer to 1st floor with baby if asymptomatic with ambulation, and stable or improving Hgb. #2: GDM A2 Continue to monitor [facility] blood sugars. This AM BG was 106 per RN at bedside. #3: PPD # 1 - AFVSS - Continue routine care - Motrin and Percocet PRN pain - Encourage OOB - Pelvic rest x 6 wks - Contraception: - Anticipate D/C tomorrow 01/24 or on 01/25. Daniel Reddy Dr., MD R2 January 23, 2017 08:40
[2017-01-23] MEDS: ACETAMINOPHEN 325 MG TAB PO PRN (14:42)
[2017-01-23 14:45] LABS: AUTOMATED NEUTROPHIL # 7.2 TH/MM3 (1.8-7.7); BASOPHIL % 0.3 % (0.0-2.0); EOSINOPHIL % 0.4 % (0.0-4.0); HEMATOCRIT 26.5 % (35.0-46.0); HEMO FLAGS DIFF FINAL; MEAN CELL VOLUME 80.7 FL (80.0-100.0); MEAN CORPUSCULAR HEMOGLOBIN 27.9 PG (27.0-34.0); MEAN CORPUSCULAR HGB CONC 34.6 % (32.0-36.0); MONO % 7.4 % (0.0-8.0); NEUT % 71.9 % (16.0-70.0); PLATELET COUNT 209 TH/MM3 (150-450); RED BLOOD COUNT 3.28 MIL/MM3 (4.00-5.30); WHITE BLOOD COUNT 10.1 TH/MM3 (4.0-11.0)
--- NOTE | 2017-01-24 07:59 | PD.LABORPN ---
Objective Objective Pelvic Exam: Cervix: [-] Dilatation: [-] Effacement: [-] Station: [-] Presentation: [-] Membranes: [intact or ruptured] Uterine Contractions: [-] FHT's: Category: [-] Baseline: [-] Reactive: [-] Variability: [-] Decels: [-] Assessment/Plan Problem List: (1) Polyhydramnios (2) Two vessel cord (3) Primiparity (4) Gestational diabetes mellitus (5) Positive GBS test Daniel Andrews MD R2 January 24, 2017 07:59
[2017-01-24 08:00] VITALS: BP 105/74; PULSE 97; RESP 18; TEMP 99; O2SAT 98
--- NOTE | 2017-01-24 08:22 | HHI.OB ---
Subjective Post Day: 2 Remarks Patient doing well after recieving 2 units of PRBCs. She is not feeling faint, or having palpitations. No SOB. She is ambulating without difficulty. She is tolerating whole meals. Her bleeding has decreased to "gotas" or drops. ( Daniel Andrews MD R2) Objective Vitals/I&O Vital Signs Date Time Temp Pulse Resp B/P Pulse Ox O2 Delivery O2 Flow Rate FiO2 01/23/17 19:36 97.5 99 01/23/17 19:36 104 16 110/69 01/23/17 13:55 110 99 01/23/17 13:50 112 99 01/23/17 13:46 110 110/56 01/23/17 13:45 111 99 01/23/17 13:40 110 100 01/23/17 13:36 99.2 16 01/23/17 13:35 109 99 01/23/17 13:31 109 113/60 01/23/17 13:30 106 100 01/23/17 13:25 110 99 01/23/17 13:20 110 100 01/23/17 13:16 110 115/65 01/23/17 13:15 113 100 01/23/17 13:10 111 99 01/23/17 13:05 110 99 01/23/17 13:01 116 112/62 01/23/17 13:00 113 99 01/23/17 12:55 111 100 01/23/17 12:50 116 99 01/23/17 12:46 109 107/62 01/23/17 12:45 112 100 01/23/17 12:40 99 01/23/17 12:40 111 01/23/17 12:35 115 01/23/17 12:35 99 01/23/17 12:32 99.2 16 01/23/17 12:31 114 116/50 01/23/17 12:30 116 100 01/23/17 12:25 113 100 01/23/17 12:20 115 99 01/23/17 12:15 116 100 01/23/17 12:10 112 100 01/23/17 12:05 116 100 01/23/17 12:01 120 111/51 01/23/17 12:00 108 100 01/23/17 11:55 100 99 01/23/17 11:50 103 99 01/23/17 11:46 104 120/50 01/23/17 11:45 108 99 01/23/17 11:40 105 99 01/23/17 11:35 107 99 01/23/17 11:31 109 110/55 01/23/17 11:30 113 99 01/23/17 11:25 112 99 01/23/17 11:20 112 99 01/23/17 11:16 116 123/55 01/23/17 11:15 116 99 01/23/17 11:11 16 01/23/17 11:10 118 99 01/23/17 11:05 118 99 01/23/17 11:01 119 118/62 01/23/17 11:00 120 100 01/23/17 10:55 118 99 01/23/17 10:50 112 99 01/23/17 10:46 116 121/66 01/23/17 10:45 121 100 01/23/17 10:40 116 99 01/23/17 10:35 115 100 01/23/17 10:30 119 121/77 100 01/23/17 10:30 108 01/23/17 10:25 119 100 01/23/17 10:20 114 100 01/23/17 10:15 103 01/23/17 10:15 103 108/74 99 01/23/17 10:10 100 99 01/23/17 10:05 105 100 01/23/17 10:03 16 01/23/17 10:01 109 113/63 01/23/17 10:00 107 99 01/23/17 09:55 103 99 01/23/17 09:50 105 99 01/23/17 09:45 105 01/23/17 09:45 106 118/62 100 01/23/17 09:43 98.7 108 16 113/60 100 01/23/17 09:42 98.7 01/23/17 09:42 16 01/23/17 09:40 108 100 01/23/17 09:35 106 100 01/23/17 09:30 103 113/60 99 01/23/17 09:30 102 01/23/17 09:25 106 100 01/23/17 09:20 106 100 01/23/17 09:15 103 01/23/17 09:15 111 114/66 100 01/23/17 09:10 108 16 100 01/23/17 09:05 105 99 01/23/17 09:00 106 01/23/17 09:00 106 113/62 99 01/23/17 08:55 114 99 01/23/17 08:50 109 100 01/23/17 08:45 109 112/61 100 01/23/17 08:45 107 01/23/17 08:40 111 01/23/17 08:40 98.7 105 16 111/60 99 01/23/17 08:40 105 111/60 99 01/23/17 08:35 106 111/54 01/23/17 08:35 107 100 01/23/17 08:31 98.7 01/23/17 08:30 108 01/23/17 08:30 107 120/59 99 01/23/17 08:30 16 01/23/17 08:25 104 115/57 99 01/23/17 08:25 107 01/23/17 08:22 104 112/54 01/23/17 08:18 98.7 16 Objective Remarks GENERAL: Pale-appearing. CARDIOVASCULAR: Regular rate and rhythm without murmurs, gallops, or rubs. RESPIRATORY: Breath sounds equal bilaterally. No accessory muscle use. ABDOMEN/GI: Abdomen soft, non-tender. Fundus: Firm, non-tender at umbilicus. GENITOURINARY: Light to moderate bleeding. EXTREMITIES: No cyanosis or edema, non-tender, without signs of DVT. Medications and IVs Current Medications Medications (Trade) Dose Ordered Sig/Tomasa Route Start Time Stop Time Status Last Admin (NS Flush) 2 ml BID IV FLUSH 01/21/17 09:15 Sodium Chloride 2 ml 2 ml UNSCH PRN IV FLUSH 01/21/17 09:15 01/22/17 18:42 (NS 1000 ml Inj) 1,000 ml @ 100 mls/hr Q10H PRN IV 01/21/17 09:33 Mineral Oil 10 ml 10 ml UNSCH PRN TOPICAL 01/21/17 09:15 Oxytocin 500 ml @ 0 mls/hr TITRATE IV 01/21/17 20:15 01/21/17 22:02 (fentaNYL 2MCG-BUPIV 0.125% INJ) 100 ml @ 0 mls/hr TITRATE EPIDURAL 01/22/17 00:45 (NS Flush) 2 ml BID IV FLUSH 01/22/17 21:00 (NS Flush) 2 ml UNSCH PRN IV FLUSH 01/22/17 11:30 (Tylenol) 650 mg Q4H PRN PO 01/22/17 11:30 01/23/17 14:42 (Motrin) 600 mg Q6H PRN PO 01/22/17 11:30 (Percocet 5-325 Mg) 1 tab Q4H PRN PO 01/22/17 11:30 (Americaine 20% Top Spr) 1 spray Q4H PRN TOPICAL 01/22/17 11:30 01/23/17 14:42 (Tucks Pads) 1 applic QID PRN TOPICAL 01/22/17 11:30 01/23/17 14:42 (Shandra-Colace) 2 tab Q12H PRN PO 01/22/17 11:30 (Ambien) 5 mg HS PRN PO 01/22/17 11:30 (Mag-Al Plus Susp Liq) 15 ml Q8H PRN PO 01/22/17 11:30 Ondansetron HCl 4 mg 4 mg Q6H PRN PO 01/22/17 11:30 Lactated Ringer's 1,000 ml @ 500 mls/hr Q2H IV 01/22/17 11:24 01/22/17 13:31 (Lr 1000 ml Inj) 1,000 ml @ 200 mls/hr Q5H IV 01/22/17 11:24 01/23/17 07:29 (Daniel Andrews MD R2) Assessment/Plan Problem List: (1) Polyhydramnios (2) Two vessel cord (3) Primiparity (4) Gestational diabetes mellitus (5) Positive GBS test Assessment and Plan 26 yo G1 now P1 female s/p PPD # 2. was complicated by gestational diabetes; controlled by metformin. The delivery was complicated by hemorrhage, of 1.25 L. She required IM methargen, 2 bags of Picticon, and 400 mcg cytotec per rectum. The bleeding subsided. #1: Post Hemorrhage Hemoglobin prior to delivery was 12.4/36.6, one hour after delivery hemoglobin dropped to 10.3/31.2. It was checked 8 hours later, and it decreased to 8.5/ 26.0. Overnight, she had an episode of hypotension 78/58, feeling feverish, and having diffuse pain. She was given 1 unit of packed red blood cells. The hemoglobin was checked after this transfusion, and was 7.6/22.4. She is feeling much better today. She is having minimal vaginal bleeding at this point with no clots. PLAN: * Given 2 units PRBCs. H/H corrected to 9.2/26.0. We will recheck this morning, if stable can be d/c'ed with follow up with me on Friday. Will d/c home on Ferrous sulfate 325 BID. #2: GDM A2 Continue to monitor [facility] blood sugars. Her BS. Will recheck Fasting glucose at 6 weeks post . #3: PPD # 2 - AFVSS - Continue routine care - Motrin and Percocet PRN pain - Encourage OOB - Pelvic rest x 6 wks - Contraception: - Anticipate D/C toda 01/24. DW Dr. Hill (Daniel Andrews MD R2) Attending Attestation Patient seen, examined, and discussed with Dr Andrews. I agree with assessment and management as documented and discussed with me. Pt reports minimal bleeding, wagon washer than a period. She feels ready for discharge. She is undecided re: control. She will be and had trouble conceiving (requiring IVF for this ). Discharge home today (Karla Hill MD) Daniel Andrews MD R2 January 24, 2017 08:22 Karla Hill MD January 24, 2017 16:08
[2017-01-24] MEDS ORDERED: FERR325T PO (08:24)
[2017-01-24] MEDS ORDERED: IBUP-232 PO (08:24)
--- NOTE | 2017-01-24 08:25 | HHI.DCPOC ---
Discharge Care Plan Diagnosis: (1) Gestational diabetes mellitus (2) Polyhydramnios (3) Primiparity (4) Two vessel cord (5) Positive GBS test Report Symptoms to Your Doctor -Temperate above 100.5 degrees -Redness, of incision or excessive or foul smelling drainage -Unusual pain or calf pain -Increased vaginal bleeding -Painful or difficulty urinating -Feelings of extreme sadness or anxiety after 2 weeks Goals to Promote Your Health * To prevent worsening of your condition and complications * To maintain your health at the optimal level Directions to Meet Your Goals Take your medications as prescribed Follow your dietary instruction Follow activity as directed Ensure plenty of rest for recovery Drink fluids for hydration Keep your appointments as scheduled Take your immunizations and boosters as scheduled If your symptoms worsen call your PCP, if no PCP go to Urgent Care Center or Emergency Room Smoking is Dangerous to Your Health. Avoid second hand smoke Call the 24-hour crisis hotline for domestic abuse at Daniel Andrews MD R2 January 24, 2017 08:25
[2017-01-24 09:00] VITALS: BP 105/74; PULSE 97; RESP 18; TEMP 99
[2017-01-24 09:10] LABS: AUTOMATED NEUTROPHIL # 6.1 TH/MM3 (1.8-7.7); BASOPHIL % 0.4 % (0.0-2.0); EOSINOPHIL # 0.1 TH/MM3 (0-0.4); EOSINOPHIL % 1.6 % (0.0-4.0); HEMATOCRIT 24.8 % (35.0-46.0); HEMO FLAGS DIFF FINAL; LYMPH % 21.9 % (9.0-44.0); LYMPHOCYTE # 1.9 TH/MM3 (1.0-4.8); MEAN CELL VOLUME 81.2 FL (80.0-100.0); MEAN CORPUSCULAR HEMOGLOBIN 26.8 PG (27.0-34.0); MONO % 7.3 % (0.0-8.0); NEUT % 68.8 % (16.0-70.0); PLATELET COUNT 190 TH/MM3 (150-450); RED BLOOD COUNT 3.06 MIL/MM3 (4.00-5.30); RED CELL DISTRIBUTION WIDTH 16.8 % (11.6-17.2); WHITE BLOOD COUNT 8.8 TH/MM3 (4.0-11.0)
[2017-01-24 14:10] VITALS: BP 113/74; PULSE 108; TEMP 99.1
[2017-03-07] MEDS ORDERED: AUGM0.0512 TOPICAL (14:40)
== END 2017-01-24 16:13 | disposition home or self-care (01) | DRG 774 ==
LOC: H2EA 09:03 → H1EA 01-23 15:11
PROVIDERS: ADMIT Family Medicine; ATTEND Family Medicine
PROC: 10E0XZZ Delivery of Products of Conception, External Approach (ICD-10-PCS; principal; 2017-01-21)
PROC: 0UQC0ZZ Repair Cervix, Open Approach (ICD-10-PCS; 2017-01-21)
PROC: 0KQM0ZZ Repair Perineum Muscle, Open Approach (ICD-10-PCS; 2017-01-21)
PROC: 30233N1 Transfusion of Nonautologous Red Blood Cells into Peripheral Vein, Percutaneous Approach (ICD-10-PCS; 2017-01-21)
PROC: 3E0R3CZ (ICD-10-PCS; 2017-01-21)
PROC: 00HU33Z Insertion of Infusion Device into Spinal Canal, Percutaneous Approach (ICD-10-PCS; 2017-01-21)
PROC: 3E033VJ Introduction of Other Hormone into Peripheral Vein, Percutaneous Approach (ICD-10-PCS; 2017-01-21)
DX: O24.425 Gestational diabetes mellitus in childbirth, controlled by oral hypoglycemic drugs (principal); O72.1 Other immediate postpartum hemorrhage; O40.3XX0 Polyhydramnios, third trimester, not applicable or unspecified; O71.4 Obstetric high vaginal laceration alone; O71.3 Obstetric laceration of cervix; Z37.0 Single live birth; O99.824 Streptococcus B carrier state complicating childbirth; Z3A.39 39 weeks gestation of pregnancy; O76 Abnormality in fetal heart rate and rhythm complicating labor and delivery
CPT/HCPCS: 36430; 59025; 72192; 74000; 81001; 82948; 85025; 86850; 86900; 86901; 86920; 87086; 88307; 90715; J0690; J2210; J2540; J2590; J7050; J7120; P9016

== ENCOUNTER → 2017-01-27 | Outpatient (CLI) | payer MEDICAID, OTHER ==
[~2017-01-27] MED LIST changes: +AUGM0.0512 TOPICAL; -CLOT1CRE TOPICAL; +FERR325T PO; -FLUT50SP EACH NARE; +FOLI5CAP PO; +IBUP-232 PO; -MEDICAL COMPRES1 MIS; +PRENTAB60
[2017-01-27 12:16] LABS: AUTOMATED NEUTROPHIL # 6.4 TH/MM3 (1.8-7.7); BASOPHIL % 0.3 % (0.0-2.0); EOSINOPHIL # 0.2 TH/MM3 (0-0.4); EOSINOPHIL % 2.5 % (0.0-4.0); HEMATOCRIT 30.2 % (35.0-46.0); HEMO FLAGS DIFF FINAL; LYMPH % 21.3 % (9.0-44.0); MEAN CELL VOLUME 82.1 FL (80.0-100.0); MEAN CORPUSCULAR HEMOGLOBIN 26.4 PG (27.0-34.0); MEAN CORPUSCULAR HGB CONC 32.2 % (32.0-36.0); MONO % 6.3 % (0.0-8.0); NEUT % 69.6 % (16.0-70.0); PLATELET COUNT 313 TH/MM3 (150-450); RED BLOOD COUNT 3.68 MIL/MM3 (4.00-5.30); RED CELL DISTRIBUTION WIDTH 16.6 % (11.6-17.2); WHITE BLOOD COUNT 9.2 TH/MM3 (4.0-11.0)
== END ==
LOC: CLAB 11:42
PROVIDERS: ATTEND Family Medicine
DX: O72.1 Other immediate postpartum hemorrhage (principal)
CPT/HCPCS: 36415; 85025

== ENCOUNTER → 2017-01-29 | Outpatient (CLI) | payer OTHER | LOC: CLAB 11:14 | PROVIDERS: ATTEND Family Medicine | DX: O24.419 Gestational diabetes mellitus in pregnancy, unspecified control (principal) | CPT/HCPCS: 36415; 82951 ==

== ENCOUNTER → 2017-03-10 | Outpatient (CLI) | payer OTHER ==
[~2017-03-10] MED LIST changes: -BAYEKIT; -FOLI5CAP PO; -IBUP-232 PO; -METF1000 PO; -PRENTAB60
== END ==
LOC: CLAB 08:02
PROVIDERS: ATTEND Family Medicine
DX: O24.419 Gestational diabetes mellitus in pregnancy, unspecified control (principal)
CPT/HCPCS: 36415; 82951